=== PATIENT | male | born 1960 | race Caucasian/White ===

== ENCOUNTER 2020-11-19 17:20 | Emergency (ER) | payer SELFPAY ==
[~2020-11-19] VITALS: Ht 175.3 cm; Wt 97.5 kg
[2020-11-19] MEDS ORDERED: diphenhydrAMINE 50 MG/1 ML VIAL IM ONE ×2 (17:30→21:00)
[2020-11-19] MEDS ORDERED: ZIPRASIDONE MESYLATE 20 MG VIAL IM ONE ×3 (17:30→17:34)
[2020-11-19] MEDS ORDERED: diphenhydrAMINE 50 MG/1 ML VIAL ONE ×3 (17:31→20:56)
--- NOTE | 2020-11-19 17:46 | NUR ---
"No sitter available." per nursing wastewater supervisor Carolin.
[2020-11-19 18:09] LABS: BASOPHILS % (AUTO) 0.3 % (0.0-2.0); EOSINOPHILS # (AUTO) 0.1 K/uL (0.0-0.7); EOSINOPHILS % (AUTO) 1.1 % (0.0-7.0); HEMATOCRIT 41.4 % (36.7-47.1); HEMOGLOBIN 14.1 g/dL (12.5-16.3); LYMPHOCYTES # (AUTO) 2.3 K/uL (20.0-40.0); LYMPHOCYTES % (AUTO) 22.5 % (20.5-51.5); MEAN CORPUSCULAR HEMOGLOBIN 31.8 uug (23.8-33.4); MEAN CORPUSCULAR HGB CONC 34 g/dL (32.5-36.3); MEAN CORPUSCULAR VOLUME 93.6 fL (73.0-96.2); MONOCYTES # (AUTO) 0.4 K/uL (2.0-10.0); MONOCYTES % (AUTO) 3.9 % (0.0-11.0); NEUTROPHILS # (AUTO) 7.5 K/uL (1.8-8.9); NEUTROPHILS % (AUTO) 72.2 % (38.5-71.5); PLATELET COUNT (AUTO) 242 K/uL (152-348); RED BLOOD CELL COUNT(AUTO) 4.42 MIL/uL (4.06-5.63); WHITE BLOOD COUNT (AUTO) 10.4 K/uL (3.6-10.2)
[2020-11-19 18:14] LABS: CARBON DIOXIDE 23 mmol/L (21-32); CHLORIDE 103 mmol/L (98-107); GLUCOSE 119 mg/dL (74-106); POTASSIUM 2.9 mmol/L (3.5-5.1); UREA NITROGEN, BLOOD 9 mg/dL (7-18)
[2020-11-19 18:21] LABS: ACETAMINOPHEN < 2.0 ug/mL (10-30); ALANINE AMINOTRANSFERASE 34 U/L (16-63); ALKALINE PHOSPHATASE 100 U/L (50-136); ASPARTATE AMINOTRANSFERASE 35 U/L (15-37); BILIRUBIN,TOTAL 0.3 mg/dL (0.2-1.0); CREATINE KINASE, TOTAL 253 U/L (39-308); TOTAL PROTEIN, SERUM 7.4 g/dL (6.4-8.2)
[2020-11-19 18:30] LABS: ETHANOL 310 MG/DL (0-0)
[2020-11-19] MEDS ORDERED: POTASSIUM BICARBONATE/CIT AC 25 MEQ TABLET.EFF PO ONE (18:30)
[2020-11-19] MEDS ORDERED: THIAMINE HCL 200 MG/2 ML VIAL IM ONE (18:30)
--- NOTE | 2020-11-19 18:32 | NUR ---
Dr Gutierrez said , "No urinary catheter please. He will pee eventually."
--- NOTE | 2020-11-19 19:01 | NUR ---
Patient is still for po meds & vitamin IM, endorsed to 7pm nurse accordingly
--- NOTE | 2020-11-19 19:11 | NUR ---
Hands off report given to NIA Waggoner & NIA Harris.
--- NOTE | 2020-11-19 19:27 | NUR ---
Patient removed from restraints, resting on bed with eyes closed, no acute distress noted at this time.
--- NOTE | 2020-11-19 19:30 | NUR ---
Patient refusing Klyte and vitamin B1 injection.
--- NOTE | 2020-11-19 20:20 | NUR ---
Note daylin in ED - 11/20/20 at 0405 by ASHANTI Patient becoming agitated, threw his urinal on the floor, and began to yell. Exhibition Carver Kesha notified. Request for 1:1 sitter. Request for security at bedside.
--- NOTE | 2020-11-19 20:20 | NUR ---
Patient becoming agitated, threw his urinal on the floor resulting in floor becoming wet with urine on the floor, and began to yell. Specialist Wound Care Kesha notified. Request for 1:1 sitter. Request for security at bedside. EVS requested to clean the patient's floor.
--- NOTE | 2020-11-19 20:25 | NUR ---
Security present at bedside monitoring patient until I can check 1:1 sitter status whether one is avaliable to come after notifying nursing small appliance assembly supervisor while I attend code stroke on another patient of mine.
--- NOTE | 2020-11-19 20:33 | NUR ---
Found patient outside the room on the floor. No security present. No sitter present. Patient yelling, and beginning to sing holy music. MD Manning made aware.
--- NOTE | 2020-11-19 20:35 | NUR ---
Patient assessed for injuries after finding him on the floor. Patient denies head, neck, back injuries. Patient was found resting on his left knee when I saw him on the floor. The patient denies any injury to his left knee, stating "My left knee is already bad, I'm okay." Patient was assisted back into the bed. MD Manning made aware.
[2020-11-19] MEDS ORDERED: HALOPERIDOL LACTATE 5 MG/1 ML VIAL ONE (20:55)
[2020-11-19] MEDS ORDERED: LORAZEPAM 2 MG/1 ML VIAL ONE (20:56)
[2020-11-19] MEDS ORDERED: LORAZEPAM 2 MG/1 ML VIAL IM ONE (21:00)
[2020-11-19] MEDS ORDERED: HALOPERIDOL LACTATE 5 MG/1 ML VIAL IM ONE (21:00)
--- NOTE | 2020-11-19 21:21 | NUR ---
Sitter not available to be obtained at this time, will closely monitor patient and chart at entrance of patient's room.
--- NOTE | 2020-11-19 21:21 | NUR ---
Manager Urology Kesha notified for need for 1:1 sitter. Patient is consolable as long as someone is present at bedside.
--- NOTE | 2020-11-19 22:10 | NUR ---
Patient is alert and orientated x 4. Able to read, comprehend AMA form, and what it entails. Patient does not wish to proceed with medical care recommended by Dr. Manning. Patient given information related to possible complications, up to and including , which could occur as a result of leaving the hospital at this time. Patient verbalizes understanding of risks involved due to leaving against medical advice. Patient has signed AMA form.
--- NOTE | 2020-11-19 22:10 | NUR ---
Patient left AMA after signing from. Patient ambulates with steady gait, V/S stable, left with all personal belongings. stressed follow up or return to ER for worsening s/s.
--- NOTE | 2020-11-20 03:48 | NUR ---
[id number] ID for FALL INCIDENT REPORT.
[2020-11-22 07:58] VITALS: BP 130/64
== END 2020-11-19 22:30 | disposition left against medical advice (07) ==
LOC: ER 17:20
DX: F10.129 Alcohol abuse with intoxication, unspecified (principal); Y90.8 Blood alcohol level of 240 mg/100 ml or more; E87.6 Hypokalemia; R45.1 Restlessness and agitation
CPT/HCPCS: 36415; 80053; 80299; 80307; 80320; 82550; 85025; 96372; 99285; J1200; J3486; A4663; G0480; J1630; J2060